=== PATIENT | female | born 1955 | race Caucasian/White ===

== ENCOUNTER 2022-02-15 12:29 | Emergency (ER) | payer MEDICARE, SELFPAY ==
[2022-02-15 12:45] VITALS: BP 122/85; PULSE 87; RESP 20; TEMP 36.6; O2SAT 97
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
== END 2022-02-15 13:39 | disposition home or self-care (01) ==
PROVIDERS: Emergency Provider Registered Nurse; PCP Internal Medicine
DX: J32.9 Chronic sinusitis, unspecified (principal); Z86.16 Personal history of COVID-19; I10 Essential (primary) hypertension; Z20.822 Contact with and (suspected) exposure to COVID-19
CPT/HCPCS: 87426; 87804; 99213; C9803; G0463